=== PATIENT | female | born 1995 | race Caucasian/White ===

== ENCOUNTER → 2021-11-04 15:41 | Outpatient (CLI) | payer OTHER, SELFPAY ==
--- NOTE | 2021-11-04 15:45 | DI.US.S_ITS ---
PROCEDURE: US OB >= 14 WEEKS FETUS INDICATIONS: ANATOMY SCAN OUTSIDE/PRIOR DATING DATA: Last menstrual period (LMP): 06/17/2021. LMP-based estimated date of delivery (KASHMIR): 03/24/2022. First dating scan (date and location): 08/29/2021, physician's office. Estimated date of delivery (KASHMIR) from first dating scan: 03/25/2022. The calculations are made using the ultrasound KASHMIR of 03/25/2022. TECHNIQUE: Real-time scanning was performed of the fetus, with image documentation and biometric measurements. Endovaginal scanning: Not performed COMPARISON: None. FINDINGS: General: A single living intrauterine gestation is present. Presentation: Cephalic. Placenta: Placental position is anterior , without previa. Amniotic fluid index: 8.1 cm, normal range is 5-24 cm. heart rate: 153 beats per minute. Maternal cervical canal: 3.5 cm long. Normal lower limit is 2.5 cm. biometrics: Biparietal diameter: 4.6 cm, 19 weeks 5 days Head circumference: 16.8 cm, 19 weeks 3 days Abdominal circumference: 13.8 cm, 19 weeks 2 days Femur length: 3.1 cm, 19 weeks 5 days Clinically estimated gestational age: 20 weeks 0 days Composite gestational age from present scan: 19 weeks 4 days Estimated weight and percentile: 295 g, 20 percentile Anatomic survey: Neuro: Ventricles are non-dilated at less than 10 mm. Cisterna magna is normal at 3-11 mm. Cerebellum is normal in size and morphology. Nuchal skin fold: Normal at less than 6 mm between 14-21 weeks gestational age. Face: Nose and lips within normal limits. profile suboptimally visualized. Spine: No evidence for spina bifida. Heart: 4-chambered heart is present, with normal ventricular outflow tracts. Diaphragm: Diaphragm is intact. Stomach: Left-sided stomach is present. Kidneys: Bilateral prominent renal pelvicies Cord: 3-vessel cord has orthotopic insertion. Bladder: Normal in size. Extremities: All 4 extremities identified. IMPRESSION: 1. Living 2nd trimester intrauterine . Current ultrasound age is 3 days less than clinical age. 2. Technically difficult study. Suboptimal visualization of profile, and placental cord insertion. Additionally, there are prominent bilateral renal pelvises. Comment: Recommend that the patient return for re-evaluation of the profile, placental cord insertion, and bilateral renal pelvises. We strive to produce accurate, complete, and clear reports of imaging services. To assist us in improving patient care, this report was composed using standard report templates and voice recognition software. Therefore, it may contain abnormal punctuation, insertions and/or omissions. Occasional wrong-word or sound-alike substitutions may occur. Though we review the report and make efforts to correct it, we do recommend that the report be read carefully in proper context to recognize any text inaccuracies. Dictated by: Nabeel Lockwood M.D. on 11/04/2021 at 17:40 Approved by: Nabeel Lockwood M.D. on 11/04/2021 at 17:55
[2021-11-04 18:23] LABS: Add Manual Diff / Slide Review NO; Basophils Absolute Auto 0 /uL (0-100); Basophils Percent Auto 0.4 % (0-2); Eosinophils Absolute Auto 0 /uL (0-450); Eosinophils Percent Auto 0.5 % (2-4); Hematocrit 29.3 % (36-46); Hemoglobin 10.4 g/dL (12.0-16.0); Lymphocytes Absolute Auto 1500 /uL (1100-4500); Lymphocytes Percent Auto 27.5 % (25-40); Mean Corpuscular HGB Conc 35.6 % (30-36); Mean Corpuscular Hemoglobin 31.8 PG (26-34); Mean Corpuscular Volume 89.4 fL (80-100); Monocytes Absolute Auto 500 /uL (0-900); Monocytes Percent Auto 8.5 % (3-14); Neutrophils Absolute Auto 3500 /uL (1500-7000); Neutrophils Percent Auto 63.1 % (50-75); Platelet Count 124 X10^3/uL (150-400); Red Blood Cell Count 3.28 X10^6/uL (4.0-5.2); Red Cell Distribution Width 16.2 % (11.6-14.8); White Blood Cell Count 5.5 X10^3/uL (4.5-11.0)
[2021-11-04 18:45] LABS: Appearance Urine UA CLEAR; Bilirubin Urine UA NEGATIVE (NEGATIVE); Color Urine UA YELLOW; Glucose Urine UA NEGATIVE (Negative); Ketones Urine UA NEGATIVE (NEGATIVE); Leukocyte Esterase Urine UA TRACE (NEGATIVE); Nitrite Urine UA NEGATIVE (Negative); Occult Blood Urine UA NEGATIVE (Negative); Protein Urine UA NEGATIVE (Negative); Specific Gravity Urine UA <=1.005 (1.000-1.035); Urobilinogen Urine UA 0.2 E.U./dL (0.2)
[2021-11-04 19:19] LABS: pH Urine UA 6.5 (4.5-8.0)
[2021-11-04 19:20] LABS: Bacteria Urine None Seen; Culture Indicated Urine Cult Not Indicated; RBC Urine 0-1/HPF (0-5/HPF); Squamous Epithelial Cell Urine 5-10 /HPF (0-5/HPF); WBC Urine 5-10/HPF (0-5/HPF)
[2021-11-05 09:31] LABS: Hepatitis B Surface Antigen NEGATIVE s/c (NEGATIVE); Rubella Antibody IgG 9.7 IU/mL (>15)
[2021-11-05 09:45] LABS: HIV 1 & 2 Ab/Ag 4th Gen Combo NEGATIVE (NEGATIVE); Hep C Virus Ab w/Reflex Quant NEGATIVE s/c (NEGATIVE)
[2021-11-07 14:13] LABS: Varicella IgG Antibody 544 index (Immune >165)
[2021-11-08 08:12] LABS: RPR Screen Non Reactive (Non Reactive)
[2021-11-08 22:57] LABS: AFP, Serum 73.8 ng/mL (.); Estriol, Free 2.23 ng/mL (.); Inhibin A, Dimeric 243.56 pg/mL (.); Inhibin A, MoM 1.39 (.); Maternal Ethnicity Caucasian (.); Maternal Weight 180 lbs (.); Number of Fetuses No (.); OSBR Risk 1 IN 5411 (.); Results Report (.); Test Results *Screen Negative* (.); hCG, MoM 1.53 (.); hCG, Serum 34223 mIU/mL (.)
== END ==
PROVIDERS: PCP Nurse Practitioner Family; Referring Provider Obstetrics & Gynecology; Visit Provider Obstetrics & Gynecology
DX: Z34.82 Encounter for supervision of other normal pregnancy, second trimester (principal); Z3A.19 19 weeks gestation of pregnancy
CPT/HCPCS: 36415; 76811; 80055; 81003; 81015; 82105; 82677; 84702; 86336; 86787; 86803; 86850; 86900; 86901; 87086; 87389

== ENCOUNTER → 2021-11-07 14:54 | Outpatient (CLI) | payer OTHER, SELFPAY ==
[2021-11-07 19:36] LABS: Urine N gonorrhoeae NOT DETECTED
[2021-11-07 20:00] LABS: Urine Chlamydia NOT DETECTED
== END ==
PROVIDERS: PCP Nurse Practitioner Family; Visit Provider Specialist
DX: Z34.82 Encounter for supervision of other normal pregnancy, second trimester (principal); Z3A.20 20 weeks gestation of pregnancy
CPT/HCPCS: 87491; 87591

== ENCOUNTER → 2021-11-17 14:48 | Outpatient (CLI) | payer OTHER, SELFPAY ==
--- NOTE | 2021-11-17 14:48 | DI.US.S_ITS ---
PROCEDURE: US OB LIMITED INDICATIONS: Structures not well visualized on 20wk anatomy scan OUTSIDE/PRIOR DATING DATA: Last menstrual period (LMP): June 17, 2021. LMP-based estimated date of delivery (KASHMIR): March 24, 2022. First dating scan (date and location): September 08, 2021. Estimated date of delivery (KASHMIR) from first dating scan: March 25, 2022. TECHNIQUE: Real-time scanning was performed of the fetus, with image documentation. COMPARISON: None. FINDINGS: A single living intrauterine gestation is present. Presentation: Variable Placenta: Placental position is anterior, without previa. Amniotic fluid index: 15.5 cm, normal range is 5-24 cm. Single deepest vertical pocket is 4.8 cm. heart rate: 160 beats per minute. Maternal cervical canal: 3.9 cm long. Normal lower limit is 2.5 cm. Estimated gestational age from initial scan: 21 weeks, 6 days. The cord insertion is 2.1 cm from the edge of the placenta. The renal pelves are enlarged bilaterally. On the right the pelvis measures 7.3 mm and on the left the pelvis measures 11.2 mm in diameter. The profile has a normal appearance. IMPRESSION: 1. Single live intrauterine gestation in variable position. 2. There is borderline marginal insertion of the cord which is 2.1 cm from the edge of the placenta. 3. Bilateral dilated renal pelves. Continued surveillance is recommended as developing hydronephrosis cannot be excluded. 4. Profile and YAN within normal limits. Dictated by: Dian Samuel M.D. on 11/17/2021 at 16:50 Approved by: Dian Samuel M.D. on 11/17/2021 at 16:53
== END ==
PROVIDERS: PCP Nurse Practitioner Family; Referring Provider Specialist; Visit Provider Specialist
DX: Z36.2 Encounter for other antenatal screening follow-up (principal); Z3A.20 20 weeks gestation of pregnancy
CPT/HCPCS: 76815

== ENCOUNTER → 2021-12-30 16:06 | Outpatient (CLI) | payer OTHER, SELFPAY ==
[2021-12-30 16:54] LABS: Hematocrit 31.8 % (36-46)
== END ==
PROVIDERS: PCP Nurse Practitioner Family; Referring Provider Specialist; Visit Provider Specialist
DX: Z34.83 Encounter for supervision of other normal pregnancy, third trimester (principal); Z3A.28 28 weeks gestation of pregnancy
CPT/HCPCS: 36415; 85014; 85018; 86850

== ENCOUNTER 2022-01-13 16:50 | Outpatient (CLI) | payer OTHER, SELFPAY | END 2022-01-13 18:05 | disposition home or self-care (01) | LOC: OB 01-16 08:53 | PROVIDERS: PCP Nurse Practitioner Family; Referring Provider Obstetrics & Gynecology; Visit Provider Obstetrics & Gynecology | DX: O36.5930 Maternal care for other known or suspected poor fetal growth, third trimester, not applicable or unspecified (principal); Z3A.30 30 weeks gestation of pregnancy | CPT/HCPCS: 59025; G0378; G0379 ==

== ENCOUNTER 2022-01-20 16:54 | Outpatient (CLI) | payer OTHER, SELFPAY | END 2022-01-20 17:38 | disposition home or self-care (01) | LOC: OB 01-27 16:40 | PROVIDERS: PCP Nurse Practitioner Family; Referring Provider Obstetrics & Gynecology; Visit Provider Obstetrics & Gynecology | DX: O36.5930 Maternal care for other known or suspected poor fetal growth, third trimester, not applicable or unspecified (principal); Z3A.31 31 weeks gestation of pregnancy | CPT/HCPCS: 59025; G0378; G0379 ==

== ENCOUNTER 2022-01-27 16:48 | Outpatient (CLI) | payer OTHER, SELFPAY | END 2022-01-27 18:25 | disposition home or self-care (01) | LOC: LABOR 16:58 → OB 01-31 08:00 | PROVIDERS: PCP Nurse Practitioner Family; Referring Provider Obstetrics & Gynecology; Visit Provider Obstetrics & Gynecology | DX: O36.5930 Maternal care for other known or suspected poor fetal growth, third trimester, not applicable or unspecified (principal); Z3A.32 32 weeks gestation of pregnancy | CPT/HCPCS: 59025; G0378; G0379 ==

== ENCOUNTER 2022-02-10 16:51 | Outpatient (CLI) | payer OTHER, SELFPAY | END 2022-02-10 18:00 | disposition home or self-care (01) | LOC: LABOR 16:57 → OB 02-13 08:05 | PROVIDERS: PCP Nurse Practitioner Family; Referring Provider Obstetrics & Gynecology; Visit Provider Obstetrics & Gynecology | DX: O47.03 False labor before 37 completed weeks of gestation, third trimester (principal); O36.5930 Maternal care for other known or suspected poor fetal growth, third trimester, not applicable or unspecified; Z3A.34 34 weeks gestation of pregnancy | CPT/HCPCS: 59025; G0378; G0379 ==

== ENCOUNTER 2022-02-17 10:21 | Outpatient (CLI) | payer OTHER, SELFPAY ==
--- NOTE | 2022-02-17 10:48 | DI.US.S_ITS ---
PROCEDURE: US OB BIOPHYSICAL PROFILE INDICATIONS: HISTORY OF LOW GROWTH PERCENTILES - WEEKLY BIOPHYSICAL OUTSIDE/PRIOR DATING DATA: Last menstrual period (LMP): 06/17/21. LMP-based estimated date of delivery (KASHMIR): 03/24/22. First dating scan (date and location): 09/08/21. Estimated date of delivery (KASHMIR) from first dating scan: 03/25/22. The calculations are made using the clinical KASHMIR of 03/24/22. TECHNIQUE: Real-time scanning was performed of the fetus for biophysical profile, with image documentation. Endovaginal scanning: Not performed COMPARISON: [facility], , US OB >= 14 WEEKS FETUS, 02/10/2022, 16:45. FINDINGS: General: A single living intrauterine gestation is present. Presentation: Vertex. Placenta: Placental position is anterior , without previa. Amniotic fluid index: 10.3 cm, normal range is 5-24 cm. Single deepest vertical pocket is 3.4 cm. heart rate: 139 beats per minute. Maternal cervical canal: Not seen Clinically estimated gestational age: 35 weeks 0 days Biophysical profile: Tone: 2 points. Movement: 2 points. Respiration: 2 points. Largest pocket of fluid: 2 points. Incidental note made of bilateral renal pelviectasis/hydronephrosis. IMPRESSION: 1. Single live intrauterine with normal biophysical profile. 2. Bilateral pelviectasis/hydronephrosis, similar compared to the prior study. 3. Normal amniotic fluid volume. We strive to produce accurate, complete, and clear reports of imaging services. To assist us in improving patient care, this report was composed using standard report templates and voice recognition software. Therefore, it may contain abnormal punctuation, insertions and/or omissions. Occasional wrong-word or sound-alike substitutions may occur. Though we review the report and make efforts to correct it, we do recommend that the report be read carefully in proper context to recognize any text inaccuracies. Dictated by: Daisy Robledo M.D. on 02/17/2022 at 12:23 Approved by: Daisy Robledo M.D. on 02/17/2022 at 12:37
--- NOTE | 2022-02-17 11:38 | P.TNLD_ITS ---
Visit Information Visit Information Date of evaluation: 02/17/22 Primary OB Provider: Rowena Mcneill Reason for Evaluation: Yes non-stress test non-stress test reason: other ( growth restriction) [facility] Medical History (Updated 01/15/22 @ 18:14 by Rowena Mcneill MD) Anemia (~2009) GERD (gastroesophageal reflux disease) (~2017) Heavy menstrual period (~2009) HSV-2 seropositive Painful menstrual periods (~2009) depression Two vessel umbilical cord in best , antepartum Surgical History (Updated 11/07/21 @ 15:06 by Dede Coleman MD) Anesthesia H/O gastric sleeve (~05/2019) History of repair of hiatal hernia (~05/2019) [place] teeth extracted (~10/2017) Family History (Updated 09/27/21 @ 15:41 by Christi Reis) Mother Gestational diabetes Pre-diabetes Asthma Father TBI (traumatic brain injury) Diabetes mellitus Autoimmune vasculitis Hypertension Hyperlipidemia Sister Asthma Grandmother Bladder cancer Lung cancer Hypertension Grandfather Asthma Emphysema lung Grandmother Hypertension Heart disease Myocardial infarction Diabetes mellitus Grandfather Heart disease Hypertension Myocardial infarction Social History marital status: number of children: 1 household members: spouse and children lives independently: Yes housing: apartment (townhouse ) pets and animals: No education level: vocational occupational status: employed (Works from home ) current occupational exposures/hazards: No acacia/nondenominational: Taoist special acacia needs: No seatbelt use: always water heater temp set < 120 deg: Yes working smoke detector in home: Yes fire extinguisher in home: Yes carbon monox detector in home: Yes firearms in home: No do you feel safe at home: Yes Smoking Status: Never smoker second hand exposure: Yes ( smokes, mostly outside) alcohol intake: former substance use type: does not use during the past year weight has: remained stable well-balanced diet: daily or most days daily servings fruits/ve-4 caffeine: Yes Type(s) of exercise: walking frequency: 3-4 times per week Evaluation Evaluation Baseline heart rate: 135 Variability: Moderate (11-25) monitor accelerations: Present Monitor Decelerations: Absent Status: Category l Comments: BPP 10/31 Diagnosis, Plan/Disposition Plan/Disposition Plan: Assessment: 35+3 wks gestation FGR Reactive NST BPP 10/31 Plan: F/U 1 wk for ob appt, NST and BPP Warning signs reviewed OB Disposition: home
== END 2022-02-17 11:28 | disposition home or self-care (01) ==
LOC: OB 02-19 11:22
PROVIDERS: PCP Nurse Practitioner Family; Referring Provider Obstetrics & Gynecology; Visit Provider Obstetrics & Gynecology
DX: O36.5930 Maternal care for other known or suspected poor fetal growth, third trimester, not applicable or unspecified (principal); Z3A.35 35 weeks gestation of pregnancy
CPT/HCPCS: 59025; 76819; G0378; G0379

== ENCOUNTER 2022-02-23 16:17 | Outpatient (CLI) | payer OTHER, SELFPAY ==
--- NOTE | 2022-02-23 16:47 | P.TNLD_ITS ---
Visit Information Visit Information Date of evaluation: 02/23/22 Primary OB Provider: Rowena Mcneill On-call OB Provider: Kayla Cheung Reason for Evaluation: Yes non-stress test non-stress test reason: other (Umbilical cord varix, FGR) Vital Signs Vital Signs: Temperature 36.5? blood pressure 93/55 heart rate 114 [facility] Medical History Anemia (~2009) GERD (gastroesophageal reflux disease) (~2017) Heavy menstrual period (~2009) HSV-2 seropositive Painful menstrual periods (~2009) depression Two vessel umbilical cord in best , antepartum Surgical History Anesthesia H/O gastric sleeve (~05/2019) History of repair of hiatal hernia (~05/2019) [place] teeth extracted (~10/2017) Family History Mother Gestational diabetes Pre-diabetes Asthma Father TBI (traumatic brain injury) Diabetes mellitus Autoimmune vasculitis Hypertension Hyperlipidemia Sister Asthma Grandmother Bladder cancer Lung cancer Hypertension Grandfather Asthma Emphysema lung Grandmother Hypertension Heart disease Myocardial infarction Diabetes mellitus Grandfather Heart disease Hypertension Myocardial infarction Social History marital status: number of children: 1 household members: spouse and children lives independently: Yes housing: apartment (townhouse ) pets and animals: No education level: vocational occupational status: employed (Works from home ) current occupational exposures/hazards: No acacia/sabianism: Latter-Day special acacia needs: No seatbelt use: always water heater temp set < 120 deg: Yes working smoke detector in home: Yes fire extinguisher in home: Yes carbon monox detector in home: Yes firearms in home: No do you feel safe at home: Yes Smoking Status: Never smoker second hand exposure: Yes ( smokes, mostly outside) alcohol intake: former substance use type: does not use during the past year weight has: remained stable well-balanced diet: daily or most days daily servings fruits/ve-4 caffeine: Yes Type(s) of exercise: walking frequency: 3-4 times per week Evaluation Evaluation Baseline heart rate: 140 Variability: Moderate (11-25) monitor accelerations: Present Monitor Decelerations: Absent Category of Tracing: Reactive Diagnosis, Plan/Disposition Final Diagnosis (1) 36 weeks gestation of : Status: Acute (2) growth restriction: Status: Acute (3) Varices of umbilical vein: Status: Acute Plan/Disposition Plan: 27-year-old at 36 weeks and 2 days gestation here for scheduled NST and BPP. She is been followed by Maternal Medicine for growth restriction as well as umbilical vein varix. Last estimated weight at the 39th percentile at [facility] on 01/31. She is scheduled for induction next week with Dr. Mcneill. NST reactive. There was a 2+ hours wait for ultrasound to come do the BPP and patient was unable to stay. BPP 10/31 on 02/17. GBS collected and negative. She is scheduled to return 02/26 for induction and will return sooner if needed. OB Disposition: home
[2022-02-23 21:25] LABS: Strep Grp B PCR NEG for Grp B Strep
== END 2022-02-23 17:28 | disposition home or self-care (01) ==
LOC: OB 02-27 08:46
PROVIDERS: Family Medicine; PCP Nurse Practitioner Family; Referring Provider Obstetrics & Gynecology; Visit Provider Obstetrics & Gynecology
DX: O36.5930 Maternal care for other known or suspected poor fetal growth, third trimester, not applicable or unspecified (principal); O35.8XX0 Maternal care for other (suspected) fetal abnormality and damage, not applicable or unspecified; Z3A.36 36 weeks gestation of pregnancy
CPT/HCPCS: 59025; 87081; 87653; G0378; G0379

== ENCOUNTER 2022-02-27 21:52 | Inpatient (IN) | payer OTHER, SELFPAY ==
[2022-02-27 23:11] LABS: Add Manual Diff / Slide Review NO; Basophils Absolute Auto 0 /uL (0-100); Basophils Percent Auto 0.4 % (0-2); Eosinophils Absolute Auto 0 /uL (0-450); Eosinophils Percent Auto 0.2 % (2-4); Hemoglobin 10.4 g/dL (12.0-16.0); Lymphocytes Absolute Auto 1600 /uL (1100-4500); Lymphocytes Percent Auto 34.7 % (25-40); Mean Corpuscular HGB Conc 33.7 % (30-36); Mean Corpuscular Hemoglobin 30.6 PG (26-34); Mean Corpuscular Volume 90.6 fL (80-100); Monocytes Absolute Auto 400 /uL (0-900); Monocytes Percent Auto 9.8 % (3-14); Neutrophils Absolute Auto 2500 /uL (1500-7000); Neutrophils Percent Auto 54.9 % (50-75); Platelet Count 124 X10^3/uL (150-400); Red Blood Cell Count 3.42 X10^6/uL (4.0-5.2); Red Cell Distribution Width 16.8 % (11.6-14.8); White Blood Cell Count 4.6 X10^3/uL (4.5-11.0)
[2022-02-28 01:23] LABS: COVID19 -Nasal RAPID Negative (Negative)
[2022-02-28 07:25] VITALS: BP 106/66
[2022-02-28] MEDS: LACTATED RINGERS 1,000 ML 100 ML IV (07:54)
[2022-02-28] MEDS: OXYTOCIN PREMIX 30 UNIT/500 ML PLAST..BAG IV (08:46)
--- NOTE | 2022-02-28 10:31 | P.HPOB_ITS ---
OB HPI Date/Time Date of admission: 02/27/22 Date Patient Seen: 02/28/22 Time Patient Seen: 10:31 History of Present Condition Chief complaint: observation of labor KASHMIR Calculator Estimated Delivery Date Method Current WG Current Estimate 03/21/22 Ultrasound #1 37w 0d Other Estimates 03/24/22 LMP (Certain) 36w 4d 03/25/22 Ultrasound #2 36w 3d Estimated Gestational Age (weeks): 37 : 2 Para: 1 care: good care, initiated at week # (12), number of visits (7) and pounds weight gain (6) Dating criteria OB: LMP confirmed by 1st trimester US Ultrasounds: normal 1st trimester US Obstetrical complications: growth restriction Medical complications OB: none Indications Indication for induction OB: intra-uterine growth restriction Preadmission Labs Last OB Lab Results: Blood Type A Negative 02/27/22 22:50 Antibody Screen Positive 02/27/22 22:50 Hematocrit 31.0 % (36-46) L 02/27/22 22:50 Hemoglobin 10.4 g/dL (12.0-16.0) L 02/27/22 22:50 Hepatitis B Surface Antigen Negative s/c (NEGATIVE) 11/04/21 17 :31 Hepatitis C Antibody Negative s/c (NEGATIVE) 11/04/21 17:31 Rubella Antibody 9.7 IU/mL (>15) L 11/04/21 17:31 Varicella-Zoster IgG Antibody 544 index (Immune >165) 11/04/21 17:31 Group B Streptococcus (PCR) Neg for grp b strep 02/23/22 17:12 -: Chlamydia screen: negative, Gonorrhea screen: negative and Urine: negative -: PAP smear: Normal Genetic Screens: Quad screen: Normal External Labs -: Urine: negative Prior (ies) Past Pregnancies Del. Date GA/Weeks Labor Lgth Wt Sex Route Outcome Anesthesia Place Delv Breastfeed Preg Comp Name 07/28/20 39 15 6 lb 13 oz Female vaginal live - full term [facility] 1 month other labor Karissa Delivery Date: 07/28/20 Last Updated by: Lacey Holcomb R.N. two vessel cord Evaluation Evaluation Baseline heart rate: 135 Variability: Moderate (11-25) monitor accelerations: Present Monitor Decelerations: Absent Dilation (cm): 6 Effacement (%): 85 station: 0 Position of cervix: anterior Consistency: soft PFSH Medical History Anemia (~2009) GERD (gastroesophageal reflux disease) (~2017) Heavy menstrual period (~2009) HSV-2 seropositive Painful menstrual periods (~2009) depression Two vessel umbilical cord in best , antepartum Surgical History Anesthesia H/O gastric sleeve (~05/2019) History of repair of hiatal hernia (~05/2019) [place] teeth extracted (~10/2017) Family History Mother Gestational diabetes Pre-diabetes Asthma Father TBI (traumatic brain injury) Diabetes mellitus Autoimmune vasculitis Hypertension Hyperlipidemia Sister Asthma Grandmother Bladder cancer Lung cancer Hypertension Grandfather Asthma Emphysema lung Grandmother Hypertension Heart disease Myocardial infarction Diabetes mellitus Grandfather Heart disease Hypertension Myocardial infarction Social History marital status: number of children: 1 household members: spouse and children lives independently: Yes housing: apartment (townhouse ) pets and animals: No education level: vocational occupational status: employed (Works from home ) current occupational exposures/hazards: No acacia/christianity: Denominational special acacia needs: No seatbelt use: always water heater temp set < 120 deg: Yes working smoke detector in home: Yes fire extinguisher in home: Yes carbon monox detector in home: Yes firearms in home: No do you feel safe at home: Yes Smoking Status: Never smoker second hand exposure: Yes ( smokes, mostly outside) alcohol intake: former substance use type: does not use during the past year weight has: remained stable well-balanced diet: daily or most days daily servings fruits/ve-4 caffeine: Yes Type(s) of exercise: walking frequency: 3-4 times per week Meds Home Medications and Allergies Home Medications Medication Instructions Recorded Confirmed Type prenat.vits,rere,fls-avoj-hsdya 1 tab PO DAILY 08/16/21 02/28/22 History valacyclovir 500 mg tablet 500 mg PO DAILY #21 tabs 02/10/22 02/28/22 Rx (Valtrex) ondansetron 4 mg disintegrating See Rx Instructions .Route 02/28/22 Rx tablet .COMPLEX #20 tabs Allergies Allergy/AdvReac Type Severity Reaction Status Date / Time Sulfa (Sulfonamide AdvReac Mild Rash Verified 02/10/22 16:11 Antibiotics) OB Exam Narrative Exam Narrative: Generally: Patient sitting up in bed, no acute distress Fundal height: 36 cm Estimated weight: 5 1/2 lbs Extremities: Trace edema Objective Labs Result Diagrams: 02/27/22 22:50 Labs: Laboratory Results - last 24 hr 02/27/22 02/27/22 02/27/22 22:50 22:50 22:50 WBC 4.6 RBC 3.42 L Hgb 10.4 L Hct 31.0 L MCV 90.6 MCH 30.6 MCHC 33.7 RDW 16.8 H Plt Count 124 L Neut % (Auto) 54.9 Lymph % (Auto) 34.7 [place] % (Auto) 9.8 Eos % (Auto) 0.2 L Baso % (Auto) 0.4 Neut # (Auto) 2500 Lymph # (Auto) 1600 [place] # (Auto) 400 Eos # (Auto) 0 Baso # (Auto) 0 SARS-CoV-2 (PCR) Negative Blood Type A Negative Antibody Screen Positive Antibody Identification Anti-D Assessment and Plan Assessment and Plan Assessment and Plan narrative: Assessment: 27-year-old 2 para 1 at 37 weeks gestation with growth restriction Plan: AROM with clear amniotic fluid Epidural as necessary Pitocin per protocol 1 Expected management to spontaneous vaginal delivery Time Spent with Patient Total time spent with greater than 50% in coordination of care (as documented) at patient's floor/unit and/or counseling patient:: 15-24 minutes
--- NOTE | 2022-02-28 17:44 | PM.OBPRVD ---
Events: Labor Induction and Other ( growth restriction) Labor & Delivery Delivery date: 02/28/22 Cervical ripening method: none Induction method: per pitocin protocol Delivery augmentation: rupture of membranes (clear) Delivery monitor: external FHT and external uterine Route of delivery: Episiotomy description: None L&D Laceration Description: None Quantitative Blood Loss: 250 Anesthesia Type: Epidural Complications: None Narrative: Complete and pushed for 3 minutes. At 2:45 p.m., a live female delivered precipitously over an intact perineum. Infant placed on mom's abdomen. After the cord stopped pulsing, the cord was double clamped and cut. Cord bloods were obtained. Pitocin was given in the IV fluids. The placenta delivered intact with a three-vessel cord at 2:50 p.m.. No lacerations. QBL 250 cc. Apgars 8 at 1 minute and 9 at 5 minutes. weight 5 lb 11 oz. Mom and infant stable to recovery. [place] Baby 1: gender: Female Presentation: vertex Placenta delivery description: Spontaneous Cord Vessel Description: 3 Vessels and Clamped/Cut (After the cord stopped pulsing) score (1 min): 8 score (5 min): 9 weight: 5 lb 11 oz Plan for aftercare: Routine care
[2022-02-28] MEDS: IBUPROFEN 600 MG TABLET PO (21:25)
[2022-02-28] MEDS: ACETAMINOPHEN 325 MG TABLET 650 MG PO (23:57)
[2022-03-01] MEDS: IBUPROFEN 600 MG TABLET PO ×2 (02:46→09:44)
[2022-03-01] MEDS: MAGNESIUM HYDROXIDE 30 ML UDC PO (02:47)
[2022-03-01 08:03] LABS: Hematocrit 31.7 % (36-46); Hemoglobin 10.8 g/dL (12.0-16.0)
[2022-03-01] MEDS: ACETAMINOPHEN 325 MG TABLET 650 MG PO (09:44)
[2022-03-01] MEDS: CALCIUM CARBONATE 500 MG TAB 1000 MG PO (14:21)
[2022-03-01] MEDS: DOCUSATE 100 MG CAPSULE PO (14:21)
[2022-03-01] MEDS: RHO(D) IMMUNE GLOBULIN 1,500 UNIT SYRINGE 1500 UNIT IM (18:09)
[2022-03-01] MEDS: MEASLES,MUMPS,RUBELLA VACC/PF 0.5 ML VIAL SUBCUT (18:09)
[2022-03-01 19:08] VITALS: BP 115/83; PULSE 94; RESP 18; TEMP 36.8
== END 2022-03-01 18:45 | disposition home or self-care (01) | DRG 806 ==
PROVIDERS: Nurse Practitioner Obstetrics & Gynecology; Admitting Provider Obstetrics & Gynecology; PCP Nurse Practitioner Family; Referring Provider Obstetrics & Gynecology; Visit Provider Obstetrics & Gynecology
DX: O36.5930 Maternal care for other known or suspected poor fetal growth, third trimester, not applicable or unspecified (principal); O36.0130 Maternal care for anti-D [Rh] antibodies, third trimester, not applicable or unspecified; Z37.0 Single live birth; Z3A.37 37 weeks gestation of pregnancy; Z67.11 Type A blood, Rh negative; Z20.822 Contact with and (suspected) exposure to COVID-19
CPT/HCPCS: 36415; 59050; 59400; 85014; 85018; 85025; 86850; 86870; 86900; 86901; 87635; C9803; G0379; J2590; J2790